=== PATIENT | female | born 2000 | race Caucasian/White ===

== ENCOUNTER 2023-11-15 09:01 | Emergency (ER) | payer OTHER, SELFPAY ==
[2023-11-15 09:19] VITALS: BP 128/76; PULSE 118; RESP 16; TEMP 37.3; O2SAT 98
--- NOTE | 2023-11-15 09:29 | ED.URI ---
HPI - URI/Sore Throat General Chief Complaint: Upper Respiratory Infection Stated Complaint: SORE THROAT History of Present Illness HPI Narrative: 23-year-old female presented for complaint of sore throat. Onset yesterday. Endorses mild nasal congestion and drainage. Denies any other concerns. Not taking anything for symptoms. Related Data Home Medications Medication Instructions Recorded Confirmed norethindrone 1 mg-ethinyl 1 tablet PO DAILY 11/15/23 11/15/23 estradiol 10 mcg (24)-iron 10 mcg(2) tablet (Lo Loestrin Fe) Allergies Allergy/AdvReac Type Severity Reaction Status Date / Time amoxicillin Allergy Rash Verified 11/15/23 09:16 Penicillins Allergy Rash Verified 11/15/23 09:16 Review of Systems Review of Systems: CONSTITUTIONAL: Denies body aches, fever, chills, or sweats. EYES: Denies visual changes, redness, or discharge. ENT: reports sore throat, rhinorrhea, Denies otalgia. CARDIOVASCULAR: Denies chest pain, palpitations, or edema. RESPIRATORY: Denies dyspnea. GASTROINTESTINAL: Denies abdominal pain, nausea, vomiting, or diarrhea. SKIN: Denies rash, itching, or wounds. MUSCULOSKELETAL: Denies back pain, joint pain, or myalgia. NEUROLOGIC: Denies headache Exam Narrative: GENERAL: well-appearing, no acute distress. EYES: conjunctivae clear ENT: Mucous membranes moist. TMs pearly oliva with normal light reflex bilaterally; no tragal tenderness. Oropharynx mildly erythematous without lesions. Tonsils enlarged 1+ and without exudate. No drooling, no hoarseness, no trismus, uvula midline. No tripod positioning, hot potato voice, or soft palate swelling. NECK: Supple. No lymphadenopathy CHEST: Clear to auscultation, breath sounds equal. No respiratory distress, speaks in full sentences. HEART: Regular rate and rhythm. No murmur heard. SKIN: Warm, dry, no rash. NEURO: Alert and oriented x3. Course Course Emergency Course: Patient is aware of diagnosis, understands and agrees to treatment plan. Anticipatory guidance given. Patient agrees to follow-up as directed and is aware of reasons to seek care at the emergency department. Portions of this record may have been created with voice recognition software Level of Care: Express Care Visit Vital Signs Vital signs: Vital Signs Temperature 99.2 F 11/15/23 09:19 Pulse Rate 118 H 11/15/23 09:19 Respiratory Rate 16 11/15/23 09:19 Blood Pressure 128/76 11/15/23 09:19 Pulse Oximetry 98 11/15/23 09:19 Temperature 99.2 F 11/15/23 09:19 Pulse Rate 118 H 11/15/23 09:19 Respiratory Rate 16 11/15/23 09:19 Blood Pressure 128/76 11/15/23 09:19 Pulse Oximetry 98 11/15/23 09:19 MDM - URI/Sore Throat MDM Narrative Medical decision making narrative: neg strep result reviewed with pt. Advise supportive treatments. Patient is appropriate for outpatient treatment and follow-up. Differential Diagnosis Differential diagnosis: Likely upper respiratory infection, viral infection and pharyngitis Discharge Plan Discharge Clinical Impression: Upper respiratory infection Patient Disposition: Home, Self-Care Condition: Stable Instructions: Antibiotic Form, Pharyngitis (ED) Additional Instructions: Rapid strep swab was negative today You will be notified in a few days if the culture comes back positive for strep, and appropriate antibiotics will be called in at that time. if symptoms are due to a viral illness, it is not treated with antibiotics. Viral symptoms can be present for up to 10-14 days. Recommend Flonase spray and Zyrtec for sinus congestion Cough syrup may cause drowsiness; avoid driving or take it at night time. Tylenol every 8 hours as needed for pain/fever Soft foods, cool liquids, warm tea. Gargle with warm saltwater twice a day. Chloraseptic spray and throat lozenges. Rest and stay hydrated. --Follow up with your PCP --Go to the ER immediately if you cannot swallow your s
[2023-11-15 09:33] LABS: EDSTREPNEGPOS1 Negative (Negative)
== END 2023-11-15 09:33 | disposition home or self-care (01) ==
PROVIDERS: Emergency Provider Nurse Practitioner Family; PCP Registered Nurse
DX: J06.9 Acute upper respiratory infection, unspecified (principal)
CPT/HCPCS: 87081; 87880; 99213; G0463

== ENCOUNTER 2023-11-19 13:27 | Emergency (ER) | payer OTHER, SELFPAY ==
--- NOTE | 2023-11-19 13:29 | ED.EAR ---
HPI - Ear Problem General Chief complaint: Ear Stated complaint: Ear Pain/[place] Eye Time Seen by Provider: 11/19/23 13:29 Source: patient Mode of arrival: ambulatory Limitations: no limitations History of Present Illness HPI Narrative: William is a 23-year-old female patient presenting to the clinic today with complaints of ear pain and possible pinkeye. She reports she has had left ear pain x 1 day and bilateral eye itching and redness that started this morning. Denies any fever, chills, or bodyaches. Has had nasal congestion Related Data Home Medications Medication Instructions Recorded Confirmed norethindrone 1 mg-ethinyl 1 tablet PO DAILY 11/15/23 11/19/23 estradiol 10 mcg (24)-iron 10 mcg(2) tablet (Lo Loestrin Fe) Allergies Allergy/AdvReac Type Severity Reaction Status Date / Time amoxicillin Allergy Rash Verified 11/19/23 13:35 Penicillins Allergy Rash Verified 11/19/23 13:35 Review of Systems Review of Systems: Pertinent positives per HPI. Patient denies any fever, chills, rash, headache, visual changes, dizziness,shortness of breath, chest pain, palpitations, nausea, vomiting, diarrhea, constipation, abdominal pain, or any urinary issues. PMFSH Comments At the time of my signature, I reviewed and agree with the nursing past medical, surgical, social, and family history. There is no relevant family history pertinent to the patient complaint. Exam Narrative: General: Well-developed, well nourished, in no apparent distress Head: Normocephalic, atraumatic Eyes: Pupils equally round and reactive to light bilaterally, EOM intact, sclera mildly injected and conjunctive mildly red, no discharge, lids normal Ears: Right TMs intact and clear, left TM intact, bulging, red ear canals clear, no drainage, grossly hearing normal. Nose: Nares patent, clear nasal discharge, no inflammation, no sinus tenderness. Mouth: Oral pharynx without lesions or masses, good dentition, MMM. Neck: Supple, trachea midline, no enlargement of anterior or posterior cervical nodes, no thyroid masses or goiter palpable. Cardio: Regular rate and rhythm, s1 and s2 normal, no murmur appreciated. Resp: Clear to auscultation bilaterally, no rhonchi, rales, wheezing or rubs Course Course Emergency Course: Portions of this record may have been created with voice recognition software. Level of Care: Express Care Visit Vital Signs Vital signs: Vital signs reviewed Medical Decision Making MDM Narrative Medical decision making narrative: At the time of visit patient is resting comfortably on the exam table. Patient appears to be nontoxic. Plan: I suspect patient has viral conjunctivitis as well as a left otitis media. Prescription for azithromycin and azelastine eyedrops was sent to the pharmacy. Supportive measures were discussed with the patient and they voiced understanding discharge instructions and agrees to treatment plan. Return precautions reviewed Differential Diagnosis Differential Diagnosis: Otitis media, otitis sternum eustachian tube dysfunction, cerumen impaction, upper respiratory infection, conjunctivitis, subconjunctival hemorrhage Discharge Plan Discharge Clinical Impression: Acute viral conjunctivitis of both eyes, Acute left otitis media URI (upper respiratory infection) Qualifiers: URI type: unspecified URI Qualified Code(s): J06.9 - Acute upper respiratory infection, unspecified Patient Disposition: Home, Self-Care Condition: Stable Instructions: Antibiotic Form, Ear Infection (ED), Cold Symptoms (ED), Conjunctivitis (ED) Additional Instructions: URI discharge instructions Take prescription medications only as prescribed-azithromycin and azelastine eyedrops Increase fluids and stay well hydrated Tylenol/motrin for pain/fever Flonase and OTC antihistamines as directed Vicks vapor rub to open sinuses Sinus rinses for congestion Cepacol spray, cough drops, throat
[2023-11-19 13:35] VITALS: BP 129/81; PULSE 95; RESP 18; TEMP 36.6; O2SAT 99
[2023-11-19 13:36] VITALS: BP 129/81; PULSE 95; RESP 18; TEMP 36.6; O2SAT 99
== END 2023-11-19 13:41 | disposition home or self-care (01) ==
PROVIDERS: Emergency Provider Nurse Practitioner Family; PCP Registered Nurse
DX: H10.33 Unspecified acute conjunctivitis, bilateral (principal); H66.92 Otitis media, unspecified, left ear; J06.9 Acute upper respiratory infection, unspecified
CPT/HCPCS: 99213; G0463

== ENCOUNTER 2023-12-02 18:55 | Emergency (ER) | payer OTHER, SELFPAY ==
--- NOTE | ~2023-12-02 | XR_ITS ---
EXAMINATION: XR chest 2V Exam Date/Time: 12/02/2023 19:13 CDT HISTORY: cp Comparison: None. RESULT: Lines, tubes, and devices: None. Lungs and pleura: Clear. Cardiomediastinal silhouette: Normal. Other: No acute osseous or upper abdominal finding. IMPRESSION: No acute cardiopulmonary process. Reviewed, dictated and finalized at location K.
--- NOTE | 2023-12-02 18:57 | ECG_ITS ---
Test Date: 2023-12-02 19:06:04 Measurements Intervals [place] Rate: 103 P: 0 OK: 0 QRS: 3 QRSD: 85 T: -19 QT: 327 QTc: 429 Interpretive Statements ATRIAL FIBRILLATION WITH RAPID VENTRICULAR RESPONSE LOW QRS VOLTAGE IN EXTREMITY LEADS [QRS DEFLECTION < 0.5 mV IN LIMB LEADS] ABNORMAL RHYTHM ECG No previous ECG available for comparison Electronically Signed On 12-02-2023 20:39:26 CDT by Constantine Falcon M.D.
[2023-12-02 19:02] VITALS: BP 139/83; PULSE 94; RESP 15; TEMP 36.8; O2SAT 100
[2023-12-02 19:26] LABS: Basophils Absolute Auto 0.1 K/mm3 (0.0-0.1); Basophils Percent Auto 0.9 % (0.2-1.2); Eosinophils Absolute Auto 0.2 K/mm3 (0-0.3); Eosinophils Percent Auto 2.1 % (0-4.4); Hematocrit 42.5 % (37.0-47.0); Hemoglobin 14.8 g/dL (12.0-15.0); Immature Granulocyte Absolute 0.02 K/mm3 (0.00-0.031); Immature Granulocyte Percent A 0.2 % (0-0.5); Lymphocytes Absolute Auto 3.37 K/mm3 (0.9-3.2); Lymphocytes Percent Auto 36.4 % (18.3-44.2); Mean Corpuscular HGB Conc 34.8 g/dl (32-36); Mean Corpuscular Hemoglobin 31.9 pg (26-34); Mean Corpuscular Volume 91.6 fl (80-100); Mean Platelet Volume 10.2 fl (7.4-10.4); Monocytes Absolute Auto 0.6 K/mm3 (0.1-0.6); Monocytes Percent Auto 6.3 % (2.6-8.5); Neutrophils Percent Auto 54.1 % (45.5-73.1); Platelet Count Result 337 k/mm3 (150-375); Red Blood Count 4.64 M/mm3 (4.2-5.4); Red Cell Distribution Width 11.9 % (11.5-14.5); White Blood Count 9.3 K/mm3 (4.5-10.0)
[2023-12-02 19:36] LABS: Alanine Aminotransferase 12 U/L (6-35); Albumin Level 4.5 g/dL (3.5-5.1); Alkaline Phosphatase 72 U/L (38-126); Anion Gap 9 mmol/L (4-12); Aspartate Amino Transferase 21 U/L (14-36); Bilirubin,Total 0.6 mg/dL (0.2-1.3); Blood Urea Nitrogen 13 mg/dL (7-17); Carbon Dioxide 24 mmol/L (22-30); Chloride 105 mmol/L (98-107); Estimated CRCL calculation 99 ml/min; Estimated Glomerular Filt Rate > 60; Glucose 92 mg/dL (65-110); Lipase 86 U/L (23-300); Potassium 3.7 mmol/L (3.4-5.0); Sodium 138 mmol/L (137-145)
[2023-12-02 19:39] LABS: INR 0.9; Prothrombin Time 12.5 Seconds (11.1-14.7)
[2023-12-02 19:40] LABS: Partial Thromboplastin Time 27.1 Seconds (22.3-36.8)
[2023-12-02 19:48] LABS: Troponin I < 0.012 ng/mL (0.000-0.034)
[2023-12-02 21:07] VITALS: PULSE 95; O2SAT 98
--- NOTE | 2023-12-02 21:31 | ED.CHESTPAIN ---
HPI - Chest Pain General Chief Complaint: Chest Pain Stated Complaint: right sided chest pain Time Seen by Provider: 12/02/23 21:24 History of Present Illness HPI narrative: 23-year-old female with no pertinent past medical history presents to the emergency depart with right-sided chest discomfort she described as a heaviness sensation. She states she was in her normal state of health and went to sleep today, woke up from a nap with right-sided chest discomfort radiating to his right arm and down her right fingertips. Lasted for several minutes before resolving spontaneously. Present she has no pain whatsoever and has no symptoms whatsoever. No history of DVT, PE, hypertension, diabetes. She states heart history runs in the family but she herself has not had any medical conditions. No long travel, recent illnesses, recent surgeries. She is on control. Denied any chest pain in the left side of her chest, pain with deep breathing or pain with inhalation, no shortness of breath, nausea, vomiting, back pain, abdominal pain. Related Data Home Medications Medication Instructions Recorded Confirmed norethindrone 1 mg-ethinyl 1 tablet PO DAILY 11/15/23 11/19/23 estradiol 10 mcg (24)-iron 10 mcg(2) tablet (Lo Loestrin Fe) Allergies Allergy/AdvReac Type Severity Reaction Status Date / Time amoxicillin Allergy Rash Verified 12/02/23 19:02 Penicillins Allergy Rash Verified 12/02/23 19:02 Review of Systems Review of Systems: As reviewed above in HPI Exam Narrative: GENERAL: [Well-appearing, well-nourished, and in no acute distress.] HEAD: [Normocephalic, atraumatic.] EYES: [PERRLA and EOMI.] ENT: Nares clear, no rhinorrhea or epistaxis. Mucous membranes moist. NECK: Supple. CHEST: [Clear to auscultation. No respiratory distress.] HEART: [Regular rate and rhythm]. No murmur heard. [Normal peripheral pulses.] ABDOMEN: [Soft, nondistended], [nontender], [No rigidity or guarding] EXTREMITIES: Normal range of motion. [No edema.] SKIN: Warm, dry, no rash. NEURO: [No focal deficits]. Alert and oriented [x3.] PSYCH: [Normal mood and affect.] Course Vital Signs Vital signs: Vital Signs Temperature 36.8 C 10/13/24 19:02 Pulse Rate 94 12/02/23 19:02 Respiratory Rate 15 12/02/23 19:02 Blood Pressure 139/83 12/02/23 19:02 Pulse Oximetry 100 12/02/23 19:02 Temperature 36.8 C 12/02/23 19:02 Pulse Rate 95 12/02/23 21:07 Respiratory Rate 15 12/02/23 19:02 Blood Pressure 139/83 12/02/23 19:02 Pulse Oximetry 98 12/02/23 21:07 Oxygen Delivery Room Air 12/02/23 21:07 MDM - Chest Pain MDM Narrative Medical decision making narrative: 23-year-old otherwise healthy female presenting to the emergency room with right-sided chest discomfort that woke her from sleep. Patient states that chest pain has since subsided but lasted for several minutes. There was anything like this happened before, denies any palpitations, chest pain left-sided, shortness of breath, nausea, vomiting, abdominal pain, back pain. Only risk factor for thromboembolic events is that she is on control but otherwise his local as criteria. She is hemodynamically stable with no tachycardia, hypoxia, blood pressure concerns. Troponin EKG cardiac workup and chest x-ray ordered in triage. Differential diagnosis includes musculoskeletal chest pain, costochondritis, precordial catch syndrome, less likely ACS, thromboembolic event such as PE, less likely infectious event such as pneumonia. Serial troponin and D-dimer ordered in addition to her screening labs. Patient's chest x-rays independent reviewed by myself and also interpreted by radiology. I do not appreciate any consolidations, pneumonia, pneumothorax or any issues with the ribcage. Radiology concurs with no acute cardiopulmonary process. Laboratory workup revealed no leukocytosis or anemia. Initial troponin negative. Normal electrolytes, normal r
--- NOTE | 2023-12-02 21:35 | ECG_ITS ---
Test Date: 2023-12-02 21:53:49 Measurements Intervals [place] Rate: 78 P: 46 MI: 142 QRS: 23 QRSD: 80 T: 19 QT: 360 QTc: 412 Interpretive Statements SINUS RHYTHM WITH SINUS ARRHYTHMIA Compared to ECG 12/02/2023 19:06:04 Atrial fibrillation no longer present Electronically Signed On 12-03-2023 14:29:03 CDT by Krishna Michaels M.D.
[2023-12-02 21:37] LABS: D Dimer < 0.27 ug/mL (<0.48)
[2023-12-02 22:14] VITALS: BP 122/81; PULSE 82; RESP 18; O2SAT 98
== END 2023-12-02 22:16 | disposition home or self-care (01) ==
PROVIDERS: Emergency Medicine; Emergency Provider Student in an Organized Health Care Education/Training Program; PCP Registered Nurse
DX: R07.89 Other chest pain (principal); Z79.3 Long term (current) use of hormonal contraceptives; I48.91 Unspecified atrial fibrillation
CPT/HCPCS: 36415; 71046; 80053; 83690; 84484; 85025; 85380; 85610; 85730; 93005; 99284

== ENCOUNTER 2025-01-08 10:39 | Emergency (ER) | payer OTHER, SELFPAY ==
[2025-01-08 10:49] VITALS: BP 121/81; PULSE 98; RESP 16; TEMP 36.6; O2SAT 98
--- NOTE | 2025-01-08 11:32 | ED.URI ---
HPI - URI/Sore Throat General Chief Complaint: Upper Respiratory Infection Stated Complaint: Sinus Infection Symptoms Time Seen by Provider: 01/08/25 11:23 Source: patient and RN notes reviewed Mode of arrival: ambulatory Limitations: no limitations History of Present Illness HPI Narrative: 24-year-old female patient complaining of a 4 day history of nasal congestion, sinus pressure, postnasal drip. She had a sore throat initially but this has since resolved. Denies fever or shortness of breath. She has tried Zyrtec and DayQuil without relief. No known sick contacts. Related Data Home Medications ?Medication ?Instructions ?Recorded ?Confirmed ?Last Taken ?Type norethindrone 1 mg-ethinyl 1 tablet PO DAILY 11/15/23 01/08/25 Unknown History estradiol 10 mcg (24)-iron 10 mcg(2) tablet (Lo Loestrin Fe) Allergies Allergy/AdvReac Type Severity Reaction Status Date / Time amoxicillin Allergy Rash Verified 01/08/25 10:54 Penicillins Allergy Rash Verified 01/08/25 10:54 PMFSH Comments At time of signature, I have reviewed and agree with nursing past medical, surgical, social and family history unless otherwise noted. Please see nursing chart for further information. There is no relevant family history pertinent to the presenting complaint Exam Narrative: GENERAL: Mildly ill-appearing, well-nourished, and in no acute distress. HEAD: Normocephalic, atraumatic. EYES: EOMI. No redness or drainage. Conjunctivae normal. ENT: Mucous membranes pink and moist. Nares congested with rhinorrhea. No frontal or maxillary sinus tenderness. TMs normal bilaterally. Throat normal. Uvula midline. NECK: Normal AROM. Supple. Bilateral anterior cervical chain lymphadenopathy. CHEST: No respiratory distress. Clear to auscultation. HEART: Regular rate and rhythm. No murmur appreciated. EXTREMITIES: Normal range of motion. No edema. SKIN: Warm, dry, no rash. Capillary refill normal. Normal skin turgor. NEURO: No focal deficits. Alert and oriented x3. Gait steady. PSYCH: Normal affect. No signs of depression or anxiety. Course Course Level of Care: Express Care Visit Vital Signs Vital signs: Vital Signs Temperature 97.9 F 01/08/25 10:49 Pulse Rate 98 01/08/25 10:49 Respiratory Rate 16 01/08/25 10:49 Blood Pressure 121/81 01/08/25 10:49 Pulse Oximetry 98 01/08/25 10:49 Temperature 97.9 F 01/08/25 10:49 Pulse Rate 98 01/08/25 10:49 Respiratory Rate 16 01/08/25 10:49 Blood Pressure 121/81 01/08/25 10:49 Pulse Oximetry 98 01/08/25 10:49 Reviewed MDM - URI/Sore Throat MDM Narrative Medical decision making narrative: 24-year-old female patient complaining of a 4 day history of nasal congestion, sinus pressure, postnasal drip. She had a sore throat initially but this has since resolved. Denies fever or shortness of breath. She has tried Zyrtec and DayQuil without relief. No known sick contacts. Upon exam, mildly ill appearing with nasal congestion, rhinorrhea with some bilateral anterior cervical chain lymphadenopathy. Symptoms likely viral in etiology. Discussed [id number] medication use and duration of illness. No prescription medications indicated at this time. Recommend OTC decongestant, nasal steroid such as Flonase help with her symptoms. Patient agrees with plan. Vital signs stable. Anticipatory guidance given. Differential Diagnosis Differential diagnosis: Likely upper respiratory infection, sinusitis, viral infection and influenza Critical Care Time Critical Care Time Critical Care Time: No Discharge Plan Discharge Clinical Impression: Upper respiratory infection Qualifiers: URI type: unspecified URI Qualified Code(s): J06.9 - Acute upper respiratory infection, unspecified Patient Disposition: Home Condition: Stable Instructions: Upper Respiratory Infection (DC) Additional Instructions: Your symptoms are likely due to a viral illness, which is not treated with antibiotics. Virus symptoms can last for up to 7-10days. Take Tylenol or ibuprofen for pain or fever. You may consider a decongestant such as Sudafed or an intranasal steroid such as Flonase. Rest and stay hydrated. Follow up with your PCP in 5 days if symptoms are not improving. Go to the ER immediately if you develop shortness of breath, difficulty swallowing, or any other concerning symptoms. Patient Language: Spanish Prescriptions: No Action Lo Loestrin Fe 1 mg-10 mcg (24)/10 mcg (2) tablet 1 tablet PO DAILY Follow-up/Referrals: Zahida,FABIOLA Rain [Primary Care Provider] Time of Disposition: 11:36
== END 2025-01-08 11:45 | disposition home or self-care (01) ==
PROVIDERS: Emergency Provider Nurse Practitioner; PCP Registered Nurse
DX: J06.9 Acute upper respiratory infection, unspecified (principal)
CPT/HCPCS: 99211; G0463